=== PATIENT | male | born 1990 | race African-American/Black ===

== ENCOUNTER 2016-07-17 00:05 | Emergency (ER) | payer MEDICAID ==
[~2016-07-17] VITALS: Ht 190.5 cm; Wt 80.0 kg
[2016-07-17 02:36] VITALS: BP 112/57
[2016-07-17] MEDS ORDERED: DIAZEPAM 5 MG TABLET PO ONE (02:45)
== END 2016-07-17 05:04 | disposition home or self-care (01) ==
LOC: ER 00:05
DX: M54.9 Dorsalgia, unspecified (principal); J45.909 Unspecified asthma, uncomplicated; Z90.49 Acquired absence of other specified parts of digestive tract; V89.2XXA Person injured in unspecified motor-vehicle accident, traffic, initial encounter; Y93.89 Activity, other specified; Y92.89 Other specified places as the place of occurrence of the external cause; Y99.8 Other external cause status
CPT/HCPCS: 99283